=== PATIENT | male | born 1965 | race Caucasian/White ===

== ENCOUNTER → 2018-10-17 | Outpatient (CLI) | payer BC ==
--- NOTE | 2018-10-19 10:09 | MR ---
EXAMINATION TYPE: MR knee LT wo con DATE OF EXAM: 10/17/2018 COMPARISON: None HISTORY: Pain in left knee TECHNIQUE: Multiplanar, multisequence images of the knee is performed without IV contrast. FINDINGS: MEDIAL MENISCUS: Anterior and posterior horns are intact without tear. LATERAL MENISCUS: Anterior and posterior horns are intact without tear. CRUCIATE LIGAMENTS: Mild increased signal involving the ACL is felt to reflect strain or partial tear . No evidence for complete tear at this time. PCL is intact. COLLATERAL LIGAMENTS: The medial collateral ligament and lateral collateral ligament complex are inta ct and unremarkable. EXTENSOR MECHANISM: Visualized quadriceps and patellar tendons are intact. EFFUSION: No significant suprapatellar joint effusion. POPLITEAL CYST: 3 cm popliteal fossa cyst. TRICOMPARTMENT SPACES: Intact CARTILAGE: Intact BONE MARROW SIGNAL: Bone marrow contusion involving the medial femoral condyle. No evidence for fract ure. OTHER: No additional significant abnormality is appreciated. IMPRESSION: 1.Mild increased signal involving the ACL is felt to reflect strain or partial tear. No evidence for complete tear at this time. 2.Bone marrow contusion involving the medial femoral condyle. No evidence for fracture. 3. Popliteal fossa cyst.
== END | disposition home or self-care (01) ==
LOC: RADMRIMAIN 21:25
PROVIDERS: ATTEND Orthopaedic Surgery
DX: S70.12XA Contusion of left thigh, initial encounter (principal); M71.22 Synovial cyst of popliteal space [Baker], left knee